=== PATIENT | male | born 2000 | race Caucasian/White ===

== ENCOUNTER 2021-10-03 21:53 | Emergency (ER) | payer OTHER ==
[~2021-10-03] VITALS: Ht 177.8 cm; Wt 53.5 kg
[2021-10-03] MEDS ORDERED: CELEBREX100 MG PO (22:38)
== END 2021-10-03 23:01 | disposition home or self-care (01) ==
LOC: ER 21:53 → EMR PED 21:53
DX: M94.0 Chondrocostal junction syndrome [Tietze] (principal)

== ENCOUNTER → 2022-08-26 | Emergency (ER) | payer OTHER ==
[~2022-08-26] VITALS: Ht 182.9 cm; Wt 64.4 kg
[~2022-08-26] MED LIST: CELEBREX100 MG PO
== END | disposition left against medical advice (07) ==
LOC: ER 22:46
DX: Z53.21 Procedure and treatment not carried out due to patient leaving prior to being seen by health care provider (principal)

== ENCOUNTER 2022-08-27 15:32 | Emergency (ER) | payer OTHER ==
[~2022-08-27] VITALS: Ht 182.9 cm; Wt 64.4 kg
== END 2022-08-27 21:40 | disposition home or self-care (01) ==
LOC: ER 15:32
DX: M94.0 Chondrocostal junction syndrome [Tietze] (principal)

== ENCOUNTER 2024-08-15 19:42 | Emergency (ER) | payer OTHER ==
[~2024-08-15] VITALS: Ht 180.3 cm; Wt 76.7 kg
[2024-08-15 20:35] LABS: EOS # 0.36 (0.04-0.54); EOS % 6.3 % (0.7-7.0); LYMPH # 1.72 (1.18-3.74); MEAN CORPUSCULAR HEMOGLOBIN 27.4 pg (25.6-32.2); MONO # 0.78 (0.24-0.82); NEUT % 48.9 % (34.0-71.1); PLATELET COUNT 211 K/uL (163-369); RED BLOOD COUNT 5.84 M/uL (4.63-6.08); RED CELL DISTRIBUTION WIDTH 11.9 % (11.6-14.4)
[2024-08-15 20:42] LABS: MONO % 13.6 % (4.7-12.5)
[2024-08-15 20:57] LABS: PH,URINE 6.5 (5.0-8.0); URINE APPEARANCE Clear; URINE BILIRRUBIN Negative (NEGATIVE); URINE BLOOD Negative; URINE COLOR Yellow; URINE GLUCOSE Negative (NEGATIVE); URINE KETONE Negative (NEGATIVE); URINE LEUKOCYTE Negative; URINE NITRATE Negative; URINE PROTEIN Negative (NEGATIVE); URINE UROBILINOGEN 0.2 E.U./dl
[2024-08-15 21:01] LABS: URINE WBC 5.3 uL (0.0-23.2)
[2024-08-15 21:06] LABS: INR 1.1; PARTIAL THROMBOPLASTIN TIME 30.5 SECONDS (22.0-34.0); PROTHROMBIN TIME 11.9 SECONDS (9.0-11.5)
[2024-08-15 21:10] LABS: URINE BACTERIA 2.4 uL (0.0-1933); URINE EPITHELIAL CELLS 0.3 uL (0.0-38.8); URINE RBC 1.3 uL (0.0-20.8)
[2024-08-15 21:11] LABS: ALBUMIN 4.1 gm/dL (3.4-5.0); BILIRUBIN TOTAL 0.32 mg/dL (0.3-1.2); CREATININE SERUM 1.23 mg/dL (0.70-1.30); GFR 72.92; GLOBULINA 3.8 G/DL (2.4-3.5); POTASSIUM 4.02 mEq/L (3.5-5.1); TOTAL PROTEIN 7.9 gm/dL (6.4-8.2)
[2024-08-15] MEDS ORDERED: ORPHENADRINE CITRATE 30 MG/ML AMPUL IM STA (21:54)
[2024-08-15] MEDS ORDERED: KETOROLAC TROMETHAMINE 30 MG VIAL IM STA (21:54)
[2024-08-15] MEDS ORDERED: ORPHENADRINE CITRATE 30 MG/ML AMPUL ONE (21:56)
[2024-08-15] MEDS ORDERED: KETOROLAC TROMETHAMINE 30 MG VIAL ONE (21:56)
== END 2024-08-15 22:32 | disposition home or self-care (01) ==
LOC: ER 20:32
PROVIDERS: General Practice
DX: R51.9 Headache, unspecified (principal)

== ENCOUNTER 2024-09-10 20:05 | Emergency (ER) | payer OTHER ==
[~2024-09-10] VITALS: Ht 180.3 cm; Wt 72.6 kg
[2024-09-10 22:14] LABS: BASO % 0.9 % (0.1-1.2); EOS # 0.28 (0.04-0.54); EOS % 4.3 % (0.7-7.0); HEMATOCRIT 47.5 % (40.1-51.0); HEMOGLOBIN 16.2 g/dL (13.7-17.5); LYMPH # 3.41 (1.18-3.74); LYMPH % 52.3 % (19.3-53.1); MEAN CORPUSCULAR HEMOGLOBIN 26.9 pg (25.6-32.2); MONO # 0.68 (0.24-0.82); MONO % 10.4 % (4.7-12.5); NEUT # 2.08 (1.56-6.13); NEUT % 31.9 % (34.0-71.1); PLATELET COUNT 219 K/uL (163-369); RED BLOOD COUNT 6.02 M/uL (4.63-6.08); RED CELL DISTRIBUTION WIDTH 11.8 % (11.6-14.4)
== END 2024-09-10 22:54 | disposition home or self-care (01) ==
LOC: ER 20:05
PROVIDERS: General Practice
DX: R59.1 Generalized enlarged lymph nodes (principal)